=== PATIENT | male | born 1980 | race Caucasian/White ===

== ENCOUNTER 2016-10-15 02:06 | Emergency (ER) | payer MEDICAID ==
[~2016-10-15] VITALS: Ht 177.8 cm; Wt 63.6 kg
[2016-10-15 02:07] VITALS: BP 135/86
[2016-10-15] MEDS ORDERED: FLUORESCEIN OPHTHALMIC 1 MG STRIP ONE (02:15)
[2016-10-15] MEDS ORDERED: PROPARACAINE OPHTH 0.5%, 15ML ONE (02:15)
== END 2016-10-15 03:01 | disposition home or self-care (01) ==
LOC: ED 02:40
DX: H10.021 Other mucopurulent conjunctivitis, right eye (principal)
CPT/HCPCS: 99283

== ENCOUNTER 2017-05-20 20:29 | Emergency (ER) | payer MEDICAID ==
[~2017-05-20] VITALS: Ht 175.3 cm; Wt 65.0 kg
[2017-05-20 20:49] VITALS: BP 134/82
[2017-05-20] MEDS ORDERED: LIDOCAINE 1%, 10ML INFIL ONE (21:30)
[2017-05-20] MEDS ORDERED: BACITRACIN ZINC OINT 500U/GM, 0.9 GM ONE (23:25)
== END 2017-05-20 23:29 | disposition home or self-care (01) ==
LOC: ED 23:05
DX: S61.011A Laceration without foreign body of right thumb without damage to nail, initial encounter (principal); W45.8XXA Other foreign body or object entering through skin, initial encounter; Y93.89 Activity, other specified; Y92.009 Unspecified place in unspecified non-institutional (private) residence as the place of occurrence of the external cause; Y99.9 Unspecified external cause status
CPT/HCPCS: 12042; 99284

== ENCOUNTER 2019-07-09 17:20 | Emergency (ER) | payer MEDICAID ==
[~2019-07-09] VITALS: Ht 177.8 cm; Wt 67.7 kg
[2019-07-09 17:28] VITALS: BP 129/90
--- NOTE | 2019-07-09 18:00 | NUR ---
Beba barreto in ED - 07/09/19 at 1852 by RFRUHLING CMS REMAINS INTACT PROVIDER WOULD LIKE CLARY NIXONINT-HOUSEHOLD COORDINATOR MADE AWARE
--- NOTE | 2019-07-09 18:01 | NUR ---
ABOVE NOTE IN ERROR
--- NOTE | 2019-07-09 18:19 | NUR ---
TASK RN: PT TO US IN STABLE CONDITION.
--- NOTE | 2019-07-09 18:53 | NUR ---
CHANGE IN PLAN: PATIENT RECEIVING ULTRASOUND AT BEDSIDE AT THIS TIME
== END 2019-07-09 20:18 | disposition home or self-care (01) ==
LOC: ED 18:00
DX: I80.01 Phlebitis and thrombophlebitis of superficial vessels of right lower extremity (principal)
CPT/HCPCS: 99284

== ENCOUNTER 2019-07-17 21:26 | Emergency (ER) | payer MEDICAID ==
[~2019-07-17] VITALS: Ht 177.8 cm; Wt 67.6 kg
--- NOTE | 2019-07-17 22:29 | NUR ---
Pt to room from lobby in wheelchair at this time. Tx to bed w/ steady gait and able to dress self into gown.
--- NOTE | 2019-07-17 22:37 | NUR ---
Pt here recently and dx w/ a superficial thrombophlebitis and d/c home. States pain has not dissipated and now has pain behind R knee. Pt legs equal in size, no redness and warmth to LE's. Mild swelling noted where pt had original s/s. Pulses equal bilateral. Denies any cp, sob, or angeles after event. All monitoring applied. Vss. Call light within reach. ERP at bedside for assessment.
[2019-07-17 23:33] VITALS: BP 118/63
== END 2019-07-17 23:36 | disposition home or self-care (01) ==
LOC: ED 23:00
DX: I80.01 Phlebitis and thrombophlebitis of superficial vessels of right lower extremity (principal)
CPT/HCPCS: 93005; 99284